=== PATIENT | female | born 1985 | race Caucasian/White ===

== ENCOUNTER → 2016-08-23 | Outpatient (CLI) | payer BC ==
--- NOTE | 2016-08-24 11:38 | US ---
Superficial sonogram posterior neck. Indication: NECK MASS Comparison: None. Findings/ Impression: No subcutaneous mass lesion or fluid collection identified at the palpable area of concern. If persistent concern for mass lesion, correlation with contrast-enhanced CT neck recommended. Electronically signed by: Mian Esparza MD 08/24/2016 11:36
== END | disposition home or self-care (01) ==
LOC: US 09:02
PROVIDERS: ATTEND Family Medicine
DX: R22.1 Localized swelling, mass and lump, neck (principal)

== ENCOUNTER 2016-11-10 18:24 | Emergency (ER) | payer BC ==
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
[2016-11-10 18:39] VITALS: TEMP 99.7
--- NOTE | 2016-11-10 18:59 | RAD ---
EXAM: Three view(s) of the right hand. INDICATION: Pain. COMPARISON: None. FINDINGS: There is a mildly displaced oblique fracture of the fifth metacarpal with mild volar apex angulation. There is soft tissue swelling around the fracture site. No other fracture is identified. IMPRESSION: Mildly displaced fracture of the fifth metacarpal. Electronically signed by: Getachew Arroyo MD 11/10/2016 6:58 PM CDT
[2016-11-10] MEDS ORDERED: HYDROCOD/APAP 7.5/325 (ER DISP) #3 TAB PO ONE (19:24)
[2016-11-10 19:44] VITALS: BP 139/93; O2SAT 97
== END 2016-11-10 19:44 | disposition home or self-care (01) ==
LOC: ER 18:24
DX: S60.221A Contusion of right hand, initial encounter (principal); S62.346A Nondisplaced fracture of base of fifth metacarpal bone, right hand, initial encounter for closed fracture; W22.09XA Striking against other stationary object, initial encounter; Y92.9 Unspecified place or not applicable

== ENCOUNTER → 2016-11-15 | Outpatient (CLI) | payer BC ==
--- NOTE | 2016-11-15 14:30 | RAD ---
EXAM DESCRIPTION: Hand,Right 3 Views CLINICAL HISTORY: 31 years, Female, HAND PAIN COMPARISON: November 10 FINDINGS: Comminuted fracture distal midshaft fifth metacarpal relatively stable alignment with slight impaction and ventral lateral angulation. Early radiographic healing without significant callus formation. Less soft tissue swelling compared to prior IMPRESSION: Stable alignment distal fifth metacarpal fracture with early radiographic healing Electronically signed by: John Mae MD 11/15/2016 2:29 PM CDT
== END | disposition home or self-care (01) ==
LOC: RAD 07:40
PROVIDERS: ATTEND Orthopaedic Surgery
DX: M79.641 Pain in right hand (principal)

== ENCOUNTER → 2016-11-23 | Outpatient (CLI) | payer BC ==
--- NOTE | 2016-11-25 09:42 | RAD ---
EXAM DESCRIPTION: Right hand, 3 views CLINICAL HISTORY: Closed fracture fifth metacarpal FINDINGS/ IMPRESSION: Oblique fracture fifth metacarpal metadiaphysis. Dorsal angulation. Separation of the fracture 2 mm. Overriding impaction distal fragment relative to proximal by about 3 mm. Comparison to 11/15/2016 shows greater degree of lucency from the chronicity of the fracture. The displacement and impaction/overriding has worsened Electronically signed by: Richard Glover MD 11/25/2016 9:42 AM CDT Workstation: [id number]
== END | disposition home or self-care (01) ==
LOC: RAD 07:52
PROVIDERS: ATTEND Orthopaedic Surgery
DX: S62.316A Displaced fracture of base of fifth metacarpal bone, right hand, initial encounter for closed fracture (principal)

== ENCOUNTER → 2016-12-07 | Outpatient (CLI) | payer BC ==
--- NOTE | 2016-12-10 08:46 | RAD ---
EXAM DESCRIPTION: Hand,Right 3 Views CLINICAL HISTORY: UNSPECIFIED FRACTURE OF SECOND METACARPAL BONE IN RIGHT HAND COMPARISON: November 23, 2016 TECHNIQUE: AP, LATERAL, AND OBLIQUE FINDINGS: Three-view right hand shows no fracture or dislocation. An oblique fracture of the fifth metacarpal is present and unchanged in alignment from prior study with very slight volar displacement and angulation of the distal fragment. At least a small amount of bridging callus is suggested along the radial aspect on the oblique view but incomplete bony union is not apparent. IMPRESSION: 1. Stable fifth metacarpal fracture with interval partial healing and stable alignment Electronically signed by: Richard Back MD 12/10/2016 8:45 AM CDT
== END ==
LOC: RAD 07:57
PROVIDERS: ATTEND Orthopaedic Surgery
DX: S62.300D Unspecified fracture of second metacarpal bone, right hand, subsequent encounter for fracture with routine healing (principal)